=== PATIENT | female | born 1945 | race Caucasian/White ===

== ENCOUNTER → 2018-06-21 14:57 | Outpatient (CLI) | payer MEDICARE, SELFPAY ==
[2018-06-21 15:20] LABS: Prothrombin Time 40.1 seconds (9.4-11.8)
[2018-06-21 15:35] LABS: INR 4.06 (0.9-1.1)
== END ==
PROVIDERS: Visit Provider Family Medicine
DX: Z51.81 Encounter for therapeutic drug level monitoring (principal); Z79.01 Long term (current) use of anticoagulants
CPT/HCPCS: 85610